=== PATIENT | male | born 1955 | race Caucasian/White ===

== ENCOUNTER 2022-06-23 11:30 | Outpatient (CLI) | payer MEDICARE, BC | END 2022-06-23 11:31 | disposition home or self-care (01) | LOC: SCSMRI 11:30 | DX: M25.361 Other instability, right knee (principal); M96.1 Postlaminectomy syndrome, not elsewhere classified; M43.8X4 Other specified deforming dorsopathies, thoracic region; M48.061 Spinal stenosis, lumbar region without neurogenic claudication; M48.07 Spinal stenosis, lumbosacral region; S83.241A Other tear of medial meniscus, current injury, right knee, initial encounter; M23.91 Unspecified internal derangement of right knee; M67.863 Other specified disorders of tendon, right knee | CPT/HCPCS: 72146; 72148 ==

== ENCOUNTER 2022-07-07 08:41 | Outpatient (CLI) | payer BC, MEDICARE | END 2022-07-07 08:42 | disposition home or self-care (01) | LOC: SCSMRI 08:41 | PROVIDERS: ATTEND Pain Medicine Interventional Pain Medicine | DX: M48.02 Spinal stenosis, cervical region (principal); M50.321 Other cervical disc degeneration at C4-C5 level; M47.812 Spondylosis without myelopathy or radiculopathy, cervical region | CPT/HCPCS: 72141 ==

== ENCOUNTER 2024-11-07 15:12 | Outpatient (CLI) | payer BC, MEDICARE | END 2024-11-07 15:13 | disposition home or self-care (01) | LOC: SCSMRI 15:12 | PROVIDERS: ATTEND Orthopaedic Surgery | DX: S76.111A Strain of right quadriceps muscle, fascia and tendon, initial encounter (principal); S83.241A Other tear of medial meniscus, current injury, right knee, initial encounter; S83.281A Other tear of lateral meniscus, current injury, right knee, initial encounter; M85.861 Other specified disorders of bone density and structure, right lower leg; R60.0 Localized edema ==